=== PATIENT | male | born 1990 | race African-American/Black ===

== ENCOUNTER 2018-05-02 11:16 | Observation (INO) | payer OTHER ==
[2018-05-02] MEDS ORDERED: IPRATROPIUM/ALBUTEROL 0.5-2.5 MG/3 ML AMPUL NEB ONE ×3 (11:28→12:45)
[2018-05-02] MEDS ORDERED: METHYLPREDNISOLONE INJ 125 MG/2 ML SDV ONE (11:31)
--- NOTE | 2018-05-02 11:36 | ER Document Report ---
ED General - General Chief Complaint: Asthma Exacerbation Stated Complaint: SHORTNESS OF BREATH Time Seen by Provider: 05/02/18 11:28 Mode of Arrival: Ambulatory Information source: Patient Notes: Patient presents to the ED with asthma exacerbation. Hx of asthma. Has inhaler and nebulizer at home. Asthma is worsening today. Home medications have not helped. Patient has had rhinorrhea and productive cough. Does not smoke and is not on home oxygen. TRAVEL OUTSIDE OF THE [place] IN LAST 30 DAYS: No - HPI Onset: Just prior to arrival Onset/Duration: Sudden Quality of pain: No pain Associated symptoms: Productive cough, Rhinnorhea Exacerbated by: Denies Relieved by: Denies Similar symptoms previously: Yes Recently seen / treated by doctor: No - Related Data Allergies/Adverse Reactions: No Known Allergies Allergy (Unverified 05/02/18 11:16) Past Medical History - Social History Smoking Status: Never Smoker Family History: Reviewed & Not Pertinent Review of Systems - Review of Systems Constitutional: No symptoms reported EENT: Nose discharge Cardiovascular: No symptoms reported Respiratory: Cough, Short of breath Gastrointestinal: No symptoms reported Genitourinary: No symptoms reported Musculoskeletal: No symptoms reported Skin: No symptoms reported Hematologic/Lymphatic: No symptoms reported Neurological/Psychological: No symptoms reported Physical Exam - Vital signs Vitals: Temp Pulse Resp BP Pulse Ox 98.7 F 140 H 28 H 132/108 H 96 05/02/18 11:20 05/02/18 11:20 05/02/18 11:20 05/02/18 11:20 05/02/18 11:20 - Notes Notes: PHYSICAL EXAMINATION: GENERAL: Mild respiratory distress. HEAD: Atraumatic, normocephalic. EYES: Pupils equal round and reactive to light, extraocular movements intact, sclera anicteric, conjunctiva are normal. ENT: Nares patent, oropharynx clear without exudates. Moist mucous membranes. NECK: Normal range of motion, supple without lymphadenopathy LUNGS: Diffuse wheezing HEART: Tachycardic. ABDOMEN: Soft, nontender, nondistended abdomen. No guarding, no rebound. No masses appreciated. Musculoskeletal: Normal range of motion, no pitting or edema. No cyanosis. NEUROLOGICAL: Cranial nerves grossly intact. Normal speech, normal gait. Normal sensory, motor exams PSYCH: Normal mood, normal affect. SKIN: Warm, Dry, normal turgor, no rashes or lesions noted. Course - Re-evaluation Re-evalutation: 05/02/18 12:48 EKG: Ventricular rate 132, AL interval 144, QRS duration 78, QTc 457, sinus tachycardia. Multiple duonebs given as well as solumedrol. Labs and imaging ordered. Troponin and d-dimer are within normal limits. CXR does not show an acute process. On re-evaluation, patient now able to speak in broken sentences. Magnesium sulfate ordered. On re-evaluation, patient says he's doing better. Speaking in complete sentences. Still wheezing. I discussed admission with the patient. He's agreeable for admission. I spoke with Dr. Kinsey. He's agreeable with admitting the patient. - Vital Signs Vital signs: Temp Pulse Resp BP Pulse Ox 98.7 F 140 H 28 H 158/116 H 100 05/02/18 11:20 05/02/18 11:20 05/02/18 11:20 05/02/18 12:01 05/02/18 12:01 - Laboratory Result Diagrams: 05/02/18 11:30 05/02/18 11:30 Laboratory results interpreted by me: 05/02/18 05/02/18 11:30 11:30 WBC 16.7 H Lymphocytes % 12.0 L Absolute Neutrophils 12.8 H Absolute Monocytes 1.5 H Glucose 120 H Calcium 10.5 H AST 62 H ALT 18 L Total Protein 9.7 H Albumin 5.3 H Discharge - Discharge Clinical Impression: Asthma exacerbation Qualifiers: Asthma severity: moderate Asthma persistence: persistent Qualified Code(s): J45.41 - Moderate persistent asthma with (acute) exacerbation Condition: Good Disposition: ADMITTED OBSERVATION Admitting Provider: Hospitalist Unit Admitted: Medical Floor
[2018-05-02] MEDS: MAGNESIUM SULFATE/D5W 1 GM/100 ML RTUPB IV SCH ×2 (11:58→12:53)
--- NOTE | 2018-05-02 12:36 | RADIOLOGY REPORT (SQ) ---
EXAM DESCRIPTION: CHEST SINGLE VIEW COMPLETED DATE/TIME: 05/02/2018 12:23 pm REASON FOR STUDY: asthma COMPARISON: None. EXAM PARAMETERS: NUMBER OF VIEWS: One view. TECHNIQUE: Single frontal radiographic view of the chest acquired. RADIATION DOSE: NA LIMITATIONS: None. FINDINGS: LUNGS AND PLEURA: No opacities, masses or pneumothorax. No pleural effusion. MEDIASTINUM AND HILAR STRUCTURES: No masses. Contour normal. HEART AND VASCULAR STRUCTURES: Heart normal in size. Normal vasculature. BONES: No acute findings. HARDWARE: None in the chest. OTHER: No other significant finding. IMPRESSION: NO ACUTE RADIOGRAPHIC FINDING IN THE CHEST. TECHNICAL DOCUMENTATION: JOB ID: [id number] [employer]- All Rights Reserved Reading location - IP/workstation name: [email or web address]
[2018-05-02 12:37] LABS: ABSOLUTE EOSINOPHILS # (AUTO) 0.4 10^3/uL (0.0-0.6); ABSOLUTE MONOCYTES (AUTO) 1.5 10^3/uL (0.1-1.4); ABSOLUTE NEUT (AUTO) 12.8 10^3/uL (1.7-8.2); BASOPHILS % (AUTO) 0.1 % (0-2); EOSINOPHILS % (AUTO) 2.2 % (0-6); HEMATOCRIT 49.4 % (37.9-51.0); HEMOGLOBIN 16.9 g/dL (13.5-17.0); MEAN CORPUSCULAR HGB CONC 34.1 g/dL (32.0-36.0); MEAN CORPUSCULAR VOLUME 94 fl (80-97); PLATELET COUNT 308 10^3/uL (150-450); RED BLOOD COUNT 5.27 10^6/uL (4.35-5.55); RED CELL DISTRIBUTION WIDTH 13.7 % (11.5-14.0); SEGMENTED NEUTROPHILS % (AUTO) 76.7 % (42-78); TOTAL CELLS COUNTED % (AUTO) 100 %; WHITE BLOOD COUNT 16.7 10^3/uL (4.0-10.5)
[2018-05-02 12:50] LABS: ALANINE AMINOTRANSFERASE 18 U/L (21-72); ALBUMIN 5.3 g/dL (3.5-5.0); ALKALINE PHOSPHATASE 49 U/L (38-126); ANION GAP 15 (5-19); ASPARTATE AMINO TRANSFERASE 62 U/L (17-59); BILIRUBIN,DIRECT 0.3 mg/dL (0.0-0.4); BILIRUBIN,TOTAL 0.9 mg/dL (0.2-1.3); BLOOD UREA NITROGEN 12 mg/dL (7-20); CALCIUM 10.5 mg/dL (8.4-10.2); CARBON DIOXIDE 28 mmol/L (22-30); CHLORIDE 101 mmol/L (98-107); GLUCOSE 120 mg/dL (75-110); POTASSIUM 4.1 mmol/L (3.6-5.0); SODIUM 143.8 mmol/L (137-145); TOTAL PROTEIN 9.7 g/dL (6.3-8.2)
[2018-05-02] MEDS ORDERED: NORMAL SALINE 1000 ML 1,000 ML IV ONE (12:59)
[2018-05-02 15:04] LABS: ARTERIAL BLOOD BASE EXCESS -0.3 mmol/L; ARTERIAL BLOOD FIO2 3L; ARTERIAL BLOOD H2CO3 1.39 mmol/L (1.05-1.35); ARTERIAL BLOOD HCO3 25.6 mmol/L (20-24); ARTERIAL BLOOD O2 SATURATION 97.8 % (94-98); ARTERIAL BLOOD PCO2 46.3 mmHg (35-45); ARTERIAL BLOOD PH 7.36 (7.35-7.45); ARTERIAL BLOOD PO2 108.7 mmHg (80-100)
[2018-05-02] MEDS ORDERED: ALBUTEROL SULFATE 0.083% NEB 2.5 MG/3 ML AMPUL NEB PRN (15:10)
[2018-05-02] MEDS ORDERED: ONDANSETRON HCL INJ/PF 4 MG/2 ML SDV IV PRN (15:10)
[2018-05-02] MEDS ORDERED: RINGERS SOLUTION,LACTATED 1,000 ML IV PRN (15:10)
[2018-05-02] MEDS ORDERED: MAG HYDROX/AL HYDROX/SIMETH SUSP 30 ML UDCUP PO PRN (15:10)
[2018-05-02] MEDS ORDERED: ACETAMINOPHEN 325 MG TABLET PO PRN (15:10)
--- NOTE | 2018-05-02 15:46 | PDOC H&P ---
History of Present Illness Admission Date/PCP: 05/02/18 14:55 Patient complains of: Shortness of breath History of Present Illness: MARTY AMBRIZ is a 27 year old male with a lifelong history of asthma. Patient states that he was in his usual health until yesterday when he began to have some bronchospasm. He increase the frequency of his nebulizing treatments and he took some oral prednisone he has for exacerbations. He continued to have tightness and wheezing throughout the night. When he awoke he continued to use his nebulizing treatments he got tighter and tighter he had cough with productive yellow tinged sputum denies fevers chills. He presented to the emergency room. In the emergency room patient presented with significant sinus tachycardia tachypnea and extremely tight respirations. He had conversational dyspnea use of accessory muscles. He was given IV Solu-Medrol and [id number] breathing treatments. He improved slightly. An ABG was performed which showed adequate oxygenation and is not retaining CO2. His white count was mildly elevated his chest x-ray was clear a request for admission was made Past Medical History Cardiac Medical History: Denies: None, Atrial Fibrillation, Congestive Heart Failure, Coronary Artery Disease, DVT, Myocardial Infarction, Hyperlipidema, Hypertension, Peripheral Vascular Disease, Pulmonary Embolism, Heart Murmur, Other Pulmonary Medical History: Reports: Asthma EENT Medical History: Denies: None, Cataracts, Eyes, Ears, Nose, Throat, Other Neurological Medical History: Denies: None, Hemorrhagic CVA, Ischemic CVA, Migraine, Multiple Sclerosis, Seizures, Other Endocrine Medical History: Denies: None, Diabetes Mellitus Type 1, Diabetes Mellitus Type 2, Gestational Diabetes, Hyperthyroidism, Hypothyroidism, Obesity, Other Renal/ Medical History: Denies: None, Chronic Kidney Disease, End Stage Renal Disease, Nephrolithiasis, Other Malignancy Medical History: Denies: None, Bone Cancer, Brain Cancer, Breast Cancer, Cervical Cancer, Colorectal Cancer, Leukemia, Liver Cancer, Lung Cancer, Lymphoma, Ovarian Cancer , Pancreatic Cancer, Renal (Kidney) Cancer, Skin Cancer, Other GI Medical History: Denies: None, Cirrhosis, Crohn's Disease, Diverticulitis, Gastroesophageal Reflux Disease, Hepatitis, Hiatal Hernia, Peptic Ulcer Disease, Ulcerative Colitis, Other Musculoskeltal Medical History: Denies: None, Arthritis, Fibromyalgia, Gout, Other Skin Medical History: Denies: None, Eczema, Psoriasis, Other Traumatic Medical History: Denies: None, Gunshot Wound, Pneumothorax, Stab Wound, Traumatic Brain Injury , Other Hematology: Denies: None, Anemia, Hemophilia, Sickle Cell Disease, Bleeding Tendencies, Heparin Induced Thrombocytopenia, Neutropenia, Other Social History Smoking Status: Never Smoker Family History Family History: DM, Hypertension, Other - Internal grandmother and father from cerebral aneurysms Parental Family History Reviewed: Yes Children Family History Reviewed: Yes Sibling(s) Family History Reviewed.: Yes Medication/Allergy Home Medications: Albuterol Sulfate [Albuterol Sulfate 2.5mg/3 mL] 1 vial NEB Q6HP PRN 05/02/18 Albuterol Sulfate [Proair HFA Inhalation Aerosol 8.5 gm MDI] 2 puff IH Q4HP PRN 05/02/18 Fluticasone/Salmeterol [Advair 250-50 Diskus 14 Dose/Diskus] 1 puff IH Q12 05/02 Prednisone [Prednisone] 20 mg PO BID 05/02/18 Allergies/Adverse Reactions: No Known Allergies Allergy (Unverified 05/02/18 11:16) Review of Systems Constitutional: PRESENT: as per HPI. ABSENT: chills, fever(s) Eyes: ABSENT: visual disturbances Ears: ABSENT: hearing changes Nose, Mouth, and Throat: ABSENT: as per HPI, headache(s), mouth pain, sore throat, vertigo, other Breasts: ABSENT: as per HPI, other Cardiovascular: ABSENT: as per HPI, chest pain, dyspnea on exertion, edema, orthropnea, palpitations, other Respiratory: PRESENT: as per HPI, dyspnea Gastrointestinal: ABSENT: as per HPI, abdominal pain, bloating, coffee ground emesis, constipation, diarrhea, dysphagia, heartburn, hematemesis, hematochezia , melena, nausea, vomiting, other Genitourinary: ABSENT: as per HPI, difficulty urinating, dysuria, hematuria, nocturia, other Musculoskeletal: ABSENT: joint swelling Integumentary: ABSENT: rash, wounds Neurological: ABSENT: abnormal gait, abnormal speech, confusion, dizziness, focal weakness, syncope Psychiatric: ABSENT: anxiety, depression, homidical ideation, suicidal ideation Endocrine: ABSENT: cold intolerance, heat intolerance, polydipsia, polyuria Hematologic/Lymphatic: ABSENT: easy bleeding, easy bruising Allergic/Immunologic: ABSENT: as per HPI, seasonal rhinorrhea, other Physical Exam Vital Signs: Temp Pulse Resp BP Pulse Ox 98.7 F 140 H 28 H 158/116 H 100 05/02/18 11:20 05/02/18 11:20 05/02/18 11:20 05/02/18 12:01 05/02/18 12:01 General appearance: PRESENT: mild distress Head exam: PRESENT: atraumatic, normocephalic Eye exam: PRESENT: conjunctiva pink, EOMI, PERRLA. ABSENT: scleral icterus Ear exam: PRESENT: normal external ear exam Mouth exam: PRESENT: moist, tongue midline Teeth exam: ABSENT: dental caries, dental tenderness, edentulous, poor dentation , other Throat exam: ABSENT: post pharyngeal erythema, tonsillar erythema, tonsillar exudate, tonsillogmegaly, other Respiratory exam: PRESENT: accessory muscle use, wheezes, other - Conversational dyspnea. ABSENT: clear to auscultation merrick, rales, rhonchi Cardiovascular exam: PRESENT: RRR. ABSENT: diastolic murmur, rubs, systolic murmur Pulses: PRESENT: normal dorsalis pedis pul Vascular exam: PRESENT: normal capillary refill Extremities exam: PRESENT: full ROM. ABSENT: calf tenderness, clubbing, pedal edema Musculoskeletal exam: PRESENT: normal inspection. ABSENT: tenderness Neurological exam: PRESENT: alert, awake, oriented to person, oriented to place , oriented to time, oriented to situation, CN II-XII grossly intact. ABSENT: motor sensory deficit Skin exam: PRESENT: dry, intact, warm. ABSENT: cyanosis, rash Results Impressions: Chest X-Ray 05/02/18 11:32 IMPRESSION: NO ACUTE RADIOGRAPHIC FINDING IN THE CHEST. Assessment & Plan - Diagnosis (1) Status asthmaticus Qualifiers: Asthma severity: severe Asthma persistence: persistent Qualified Code(s) : J45.52 - Severe persistent asthma with status asthmaticus Is this a current diagnosis for this admission?: Yes Plan: Mid to telemetry. IV Solu-Medrol 40 mg every 6 hours every 4 hours duo nebs and every 2 hour as needed albuterol treatments. (2) Acute bronchitis Qualifiers: Bronchitis organism: unspecified organism Qualified Code(s): J20.9 - Acute bronchitis, unspecified Is this a current diagnosis for this admission?: Yes Plan: Empiric treatment with azithromycin 500 mg IV (3) Family history of cerebral aneurysm Is this a current diagnosis for this admission?: Yes Plan: Maternal grandmother with history of cerebral aneurysm father from cerebral aneurysm. Patient was counseled that he should have screening with an MRA to rule out familial cerebral aneurysm. This can be scheduled by his primary care as an outpatient procedure - Time Time Spent: 50 to 70 Minutes Anticipated discharge: Home Within: within 48 hours - Inpatient Certification Medical Necessity: Need Close Monitoring Due to Risk of Patient Decompensation
[2018-05-02] MEDS ORDERED: AZITHROMYCIN INJ 500 MG VIAL IV SCH (16:00)
[2018-05-02] MEDS: IPRATROPIUM/ALBUTEROL 0.5-2.5 MG/3 ML AMPUL NEB SCH ×2 (16:50→19:42)
[2018-05-02] MEDS: ENOXAPARIN SODIUM INJ 40 MG/0.4 ML DISP.SYRIN SUBCUT SCH (17:01)
[2018-05-02] MEDS: AZITHROMYCIN 500 MG in DEXTROSE 5%-WATER 250 ML IV SCH (17:01)
[2018-05-02] MEDS: METHYLPREDNISOLONE INJ 40 MG/1 ML SDV IV SCH (18:06)
--- NOTE | 2018-05-02 18:16 | EKG REPORT ---
SEVERITY:- BORDERLINE ECG - SINUS TACHYCARDIA MARKEDLY POSTERIOR QRS AXIS : Confirmed by: Carla Corral MD 02-May-2018 18:16:20
[2018-05-03] MEDS: METHYLPREDNISOLONE INJ 40 MG/1 ML SDV IV SCH ×4 (00:23→17:27)
[2018-05-03 04:34] LABS: ABSOLUTE LYMPHOCYTES (AUTO) 1.1 10^3/uL (0.5-4.7); ABSOLUTE MONOCYTES (AUTO) 0.6 10^3/uL (0.1-1.4); ABSOLUTE NEUT (AUTO) 16.3 10^3/uL (1.7-8.2); BASOPHILS % (AUTO) 0.2 % (0-2); EOSINOPHILS % (AUTO) 0.1 % (0-6); HEMATOCRIT 45.5 % (37.9-51.0); HEMOGLOBIN 15.6 g/dL (13.5-17.0); LYMPHOCYTES % (AUTO) 6.3 % (13-45); MEAN CORPUSCULAR HEMOGLOBIN 32.4 pg (27.0-33.4); MEAN CORPUSCULAR HGB CONC 34.3 g/dL (32.0-36.0); MEAN CORPUSCULAR VOLUME 95 fl (80-97); MONOCYTES % (AUTO) 3.3 % (3-13); PLATELET COUNT 261 10^3/uL (150-450); RED BLOOD COUNT 4.81 10^6/uL (4.35-5.55); RED CELL DISTRIBUTION WIDTH 13.8 % (11.5-14.0); SEGMENTED NEUTROPHILS % (AUTO) 90.1 % (42-78); TOTAL CELLS COUNTED % (AUTO) 100 %; WHITE BLOOD COUNT 18.1 10^3/uL (4.0-10.5)
[2018-05-03 04:49] LABS: ANION GAP 11 (5-19); BLOOD UREA NITROGEN 11 mg/dL (7-20); CALCIUM 10.2 mg/dL (8.4-10.2); CARBON DIOXIDE 26 mmol/L (22-30); CHLORIDE 104 mmol/L (98-107); GLUCOSE 124 mg/dL (75-110); POTASSIUM 4.6 mmol/L (3.6-5.0); SODIUM 141.4 mmol/L (137-145)
[2018-05-03] MEDS: IPRATROPIUM/ALBUTEROL 0.5-2.5 MG/3 ML AMPUL NEB SCH ×4 (08:05→20:20)
[2018-05-03] MEDS: ENOXAPARIN SODIUM INJ 40 MG/0.4 ML DISP.SYRIN SUBCUT SCH (09:27)
--- NOTE | 2018-05-03 12:04 | PDOC PROGRESS REPORT ---
Subjective Progress Note for:: 05/03/18 Subjective:: MARTY AMBRIZ is a 27 year old male with a lifelong history of asthma. Patient states that he was in his usual health until yesterday when he began to have some bronchospasm. He increase the frequency of his nebulizing treatments and he took some oral prednisone he has for exacerbations. He continued to have tightness and wheezing throughout the night. When he awoke he continued to use his nebulizing treatments he got tighter and tighter he had cough with productive yellow tinged sputum denies fevers chills. Patient significantly improved this morning. No conversational dyspnea on room air still has audible wheezing and chest can just Reason For Visit: STATUS ASTHMATICUS Physical Exam Vital Signs: Temp Pulse Resp BP Pulse Ox 97.6 F 91 17 139/62 H 92 05/03/18 07:28 05/03/18 08:58 05/03/18 08:05 05/03/18 07:28 05/03/18 08:05 Intake & Output 05/02/18 05/03/18 05/04/18 06:59 06:59 06:59 Intake Total 902 Balance 902 Weight 84.3 kg General appearance: PRESENT: no acute distress, well-developed, well-nourished Eye exam: PRESENT: conjunctiva pink, EOMI, PERRLA. ABSENT: scleral icterus Neck exam: ABSENT: carotid bruit, JVD, lymphadenopathy, thyromegaly Respiratory exam: PRESENT: clear to auscultation merrick, rhonchi, wheezes. ABSENT : rales Cardiovascular exam: PRESENT: RRR. ABSENT: diastolic murmur, rubs, systolic murmur Pulses: PRESENT: normal dorsalis pedis pul GI/Abdominal exam: PRESENT: normal bowel sounds, soft. ABSENT: distended, guarding, mass, organolmegaly, rebound, tenderness Extremities exam: PRESENT: full ROM. ABSENT: calf tenderness, clubbing, pedal edema Results Laboratory Results: 05/03/18 04:14 05/03/18 04:14 05/03/18 05/03/18 04:14 04:14 WBC 18.1 H RBC 4.81 Hgb 15.6 Hct 45.5 MCV 95 MCH 32.4 MCHC 34.3 RDW 13.8 Plt Count 261 Seg Neutrophils % 90.1 H Lymphocytes % 6.3 L Monocytes % 3.3 Eosinophils % 0.1 Basophils % 0.2 Absolute Neutrophils 16.3 H Absolute Lymphocytes 1.1 Absolute Monocytes 0.6 Absolute Eosinophils 0.0 Absolute Basophils 0.0 Sodium 141.4 Potassium 4.6 Chloride 104 Carbon Dioxide 26 Anion Gap 11 BUN 11 Creatinine 0.71 Est GFR ( Amer) > 60 Est GFR (Non-Af Amer) > 60 Glucose 124 H Calcium 10.2 Magnesium 2.4 H Impressions: Chest X-Ray 05/02/18 11:32 IMPRESSION: NO ACUTE RADIOGRAPHIC FINDING IN THE CHEST. Assessment & Plan - Diagnosis (1) Status asthmaticus Qualifiers: Asthma severity: severe Asthma persistence: persistent Qualified Code(s) : J45.52 - Severe persistent asthma with status asthmaticus Is this a current diagnosis for this admission?: Yes Plan: Continue IV steroids and nebulizing treatments. Patient significantly improved anticipate discharge within 24 hours (2) Acute bronchitis Qualifiers: Bronchitis organism: unspecified organism Qualified Code(s): J20.9 - Acute bronchitis, unspecified Is this a current diagnosis for this admission?: Yes Plan: IV azithromycin daily will convert to p.o. tomorrow complete a course of therapy acute bronchitis (3) Family history of cerebral aneurysm Is this a current diagnosis for this admission?: Yes Plan: Maternal grandmother with history of cerebral aneurysm father from cerebral aneurysm. Patient was counseled that he should have screening with an MRA to rule out familial cerebral aneurysm. This can be scheduled by his primary care as an outpatient procedure - Time Time Spent with patient: 25-34 minutes
[2018-05-03] MEDS ORDERED: PNEUMOCOCCAL 23-VAL P-SAC VAC 0.5 ML VIAL IM PRN (12:20)
[2018-05-03] MEDS ORDERED: ONDANSETRON HCL INJ/PF 4 MG/2 ML SDV IV PRN (13:30)
[2018-05-03] MEDS: AZITHROMYCIN 500 MG in DEXTROSE 5%-WATER 250 ML IV SCH (17:29)
[2018-05-04] MEDS: METHYLPREDNISOLONE INJ 40 MG/1 ML SDV IV SCH ×2 (03:33→05:49)
[2018-05-04] MEDS: IPRATROPIUM/ALBUTEROL 0.5-2.5 MG/3 ML AMPUL NEB SCH (08:16)
[2018-05-04 08:57] VITALS: BP 120/68
--- NOTE | 2018-05-04 10:19 | PDOC DISCHARGE SUMMARY ---
General - Admit/Disc Date/PCP Admission Date/Primary Care Provider: 05/02/18 14:55 Discharge Date: 05/04/18 - Discharge Diagnosis (1) Status asthmaticus Is this a current diagnosis for this admission?: Yes (2) Acute bronchitis Is this a current diagnosis for this admission?: Yes (3) Family history of cerebral aneurysm Is this a current diagnosis for this admission?: Yes - Additional Information Resuscitation Status: Full Code Discharge Diet: Regular Discharge Activity: Activity As Tolerated Prescriptions: Azithromycin 250 mg PO DAILY #4 tablet Prednisone 20 mg PO BID #8 tablet Home Medications: Albuterol Sulfate [Albuterol Sulfate 2.5mg/3 mL] 1 vial NEB Q6HP PRN 05/02/18 Albuterol Sulfate [Proair HFA Inhalation Aerosol 8.5 gm MDI] 2 puff IH Q4HP PRN 05/02/18 Fluticasone/Salmeterol [Advair 250-50 Diskus 14 Dose/Diskus] 1 puff IH Q12 05/02 Prednisone 20 mg PO BID 05/02/18 Acetaminophen [Tylenol 325 mg Tablet] 650 mg PO Q4HP PRN tablet 05/04/18 Azithromycin 250 mg PO DAILY #4 tablet 05/04/18 Prednisone 20 mg PO BID #8 tablet 05/04/18 History of Present Illness History of Present Illness: MARTY AMBRIZ is a 27 year old male with a lifelong history of asthma. Patient states that he was in his usual health until yesterday when he began to have some bronchospasm. He increase the frequency of his nebulizing treatments and he took some oral prednisone he has for exacerbations. He continued to have tightness and wheezing throughout the night. When he awoke he continued to use his nebulizing treatments he got tighter and tighter he had cough with productive yellow tinged sputum denies fevers chills. He presented to the emergency room Hospital Course Hospital Course: Patient was admitted to telemetry bed started on IV Solu-Medrol and around-the- clock nebulizing treatments. He was given empiric azithromycin 500 mg IV for a acute bronchitis. Chest x-ray was clear. He defervesced over 48-hour. His saturations were in the 90s on room air. He had minimal end expiratory wheezing at the time of discharge. He is to follow-up with his primary care provider in 7-10 days. He was provided a per scription for azithromycin and a short 4-day course of steroids. 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 Physical Exam Vital Signs: Temp Pulse Resp BP Pulse Ox 98.1 F 91 20 120/68 100 05/04/18 07:00 05/04/18 07:00 05/04/18 07:00 05/04/18 07:00 05/04/18 07:00 Intake & Output 05/03/18 05/04/18 05/05/18 06:59 06:59 06:59 Intake Total 1152 1829 Balance 1152 1829 Weight 84.3 kg 84.3 kg General appearance: PRESENT: no acute distress, well-developed, well-nourished Neck exam: ABSENT: carotid bruit, JVD, lymphadenopathy, thyromegaly Respiratory exam: PRESENT: wheezes - Rare end expiratory wheeze. ABSENT: rales , rhonchi GI/Abdominal exam: PRESENT: normal bowel sounds, soft. ABSENT: distended, guarding, mass, organolmegaly, rebound, tenderness Extremities exam: PRESENT: full ROM. ABSENT: calf tenderness, clubbing, pedal edema Results Laboratory Results: 05/03/18 04:14 05/03/18 04:14 Impressions: Chest X-Ray 05/02/18 11:32 IMPRESSION: NO ACUTE RADIOGRAPHIC FINDING IN THE CHEST. Qualifiers - * PATIENT BEING DISCHARGED WITH ANY OF THE FOLLOWING DIAGNOSIS: No Plan Time Spent: Less than 30 Minutes
[2018-05-04] MEDS: ENOXAPARIN SODIUM INJ 40 MG/0.4 ML DISP.SYRIN SUBCUT SCH (10:20)
== END 2018-05-04 10:48 | disposition home or self-care (01) ==
LOC: ER 11:16 → EH 14:55 → 5 16:30
PROVIDERS: ADMIT Internal Medicine; ATTEND Internal Medicine
DX: J45.52 Severe persistent asthma with status asthmaticus (principal); J20.9 Acute bronchitis, unspecified; Z84.89 Family history of other specified conditions; Z79.51 Long term (current) use of inhaled steroids; Z79.52 Long term (current) use of systemic steroids; Z79.899 Other long term (current) drug therapy; Z82.49 Family history of ischemic heart disease and other diseases of the circulatory system
CPT/HCPCS: 93005; 94640 ×5; 99285; 96361; 96375; 96365; 36415 ×2; 82803; 83735; 85025 ×2; 80048; 80053; 84484; 85379; 71045; 93010; G0378 ×4; J2920 ×3; J2930; J3475; J7060 ×2; J7030; J7120; J0456 ×2; J7620 ×3

== ENCOUNTER 2019-05-09 19:56 | Emergency (ER) | payer OTHER ==
[2019-05-09] MEDS ORDERED: IPRATROPIUM/ALBUTEROL 0.5-2.5 MG/3 ML AMPUL NEB ONE (20:05)
[2019-05-09] MEDS ORDERED: ALBUTEROL SULFATE 0.083% NEB 2.5 MG/3 ML AMPUL NEB ONE ×3 (20:05→21:27)
--- NOTE | 2019-05-09 20:08 | ER Document Report ---
ED Medical Screen (RME) - General Chief Complaint: Shortness Of Breath Stated Complaint: ASTHMA ATTACK,DIFFICULTY BREATHING Time Seen by Provider: 05/09/19 20:04 Mode of Arrival: Ambulatory Information source: Patient Notes: 28-year-old male presented to ED for severe shortness of breath. At the urgent care he was given a shot of Depo-Medrol and a nebulizer. His sats were 79% urgent care and 93 in the emergency department. He is wheezing inspiratory expiratory. He states that the shortness of breath started about 2:30 PM. He states that even with his inhaler the steroids and a nebulizer he is not feeling any better. We will put him on a nebulizer at this time and did get another bed for him in the back. I have greeted and performed a rapid initial assessment of this patient. A comprehensive ED assessment and evaluation of the patient, analysis of test results and completion of medical decision making process will be conducted by an additional ED providers. TRAVEL OUTSIDE OF THE [place] IN LAST 30 DAYS: No - Related Data Allergies/Adverse Reactions: No Known Allergies Allergy (Unverified 05/02/18 11:16) Home Medications: albuterol inhaler and albuterol nebulizer Past Medical History - Social History Chew tobacco use (# tins/day): No Frequency of alcohol use: Social Drug Abuse: None - Past Medical History Cardiac Medical History: Denies: Hx Atrial Fibrillation, Hx Congestive Heart Failure, Hx Coronary Artery Disease, Hx DVT, Hx Heart Attack, Hx Hypercholesterolemia, Hx Hypertension, Hx Peripheral Vascular Disease, Hx Pulmonary Embolism, Hx Heart Murmur Pulmonary Medical History: Reports: Hx Asthma Neurological Medical History: Denies: Hx Migraine, Hx Seizures Endocrine Medical History: Denies: Hx Diabetes Mellitus Type 1, Hx Diabetes Mellitus Type 2, Hx Hyperthyroidism, Hx Hypothyroidism Renal/ Medical History: Denies: Hx End Stage Renal Disease, Hx Peritoneal Dialysis Malignancy Medical History: Denies Hx Bone Cancer, Denies Hx Brain Cancer, Denies Hx Colorectal Cancer, Denies Hx Leukemia, Denies Hx Liver Cancer, Denies Hx Lung Cancer, Denies Hx Lymphoma, Denies Hx Pancreatic Cancer, Denies Hx Renal (Kidney) Cancer, Denies Hx Skin Cancer GI Medical History: Denies: Hx Cirrhosis, Hx Crohn's Disease, Hx Diverticulitis, Hx Gastroesophageal Reflux Disease, Hx Hepatitis, Hx Hiatal Hernia, Hx Ulcerative Colitis Musculoskeltal Medical History: Denies Hx Arthritis, Denies Hx Fibromyalgia, Denies Hx Gout Skin Medical History: Denies Hx Eczema, Denies Hx Psoriasis Traumatic Medical History: Denies: Hx Gunshot Wound, Hx Pneumothorax, Hx Traumatic Brain Injury Infectious Medical History: Denies: Hx Hepatitis Physical Exam - Vital signs Vitals: Temp Pulse Resp BP Pulse Ox 97.8 F 112 H 26 H 160/115 H 93 05/09/19 20:02 05/09/19 20:02 05/09/19 20:02 05/09/19 20:02 05/09/19 20:02 Course - Vital Signs Vital signs: Temp Pulse Resp BP Pulse Ox 97.8 F 112 H 26 H 160/115 H 93 05/09/19 20:02 05/09/19 20:02 05/09/19 20:02 05/09/19 20:02 05/09/19 20:02
[2019-05-09] MEDS ORDERED: METHYLPREDNISOLONE INJ 125 MG/2 ML SDV ONE (20:28)
[2019-05-09] MEDS ORDERED: MAGNESIUM SULFATE/D5W 2 GM/200 ML RTUPB IV ONE (20:28)
--- NOTE | 2019-05-09 20:28 | ER Document Report ---
ED Respiratory Problem - General Chief Complaint: Shortness Of Breath Stated Complaint: ASTHMA ATTACK,DIFFICULTY BREATHING Time Seen by Provider: 05/09/19 20:04 Primary Care Provider: DEMI ROB DO [Primary Care Provider] - Follow up as needed Mode of Arrival: Ambulatory Information source: Parent TRAVEL OUTSIDE OF THE [place] IN LAST 30 DAYS: No - HPI Patient complains to provider of: Asthma Onset: Just prior to arrival Duration: Worse/persistent Notes: 28-year-old male with a history of asthma, asthma exacerbations and status asthmaticus presents to the emergency department complaining of acute shortness of breath. - Related Data Allergies/Adverse Reactions: No Known Allergies Allergy (Unverified 05/02/18 11:16) Home Medications: albuterol inhaler and albuterol nebulizer Past Medical History - General Information source: Patient - Social History Smoking Status: Never Smoker Chew tobacco use (# tins/day): No Frequency of alcohol use: Social Drug Abuse: None Family History: DM, Hypertension, Other - Internal grandmother and father from cerebral aneurysms Patient has suicidal ideation: No Patient has homicidal ideation: No - Past Medical History Cardiac Medical History: Denies: Hx Atrial Fibrillation, Hx Congestive Heart Failure, Hx Coronary Artery Disease, Hx DVT, Hx Heart Attack, Hx Hypercholesterolemia, Hx Hypertension, Hx Peripheral Vascular Disease, Hx Pulmonary Embolism, Hx Heart Murmur Pulmonary Medical History: Reports: Hx Asthma Neurological Medical History: Denies: Hx Migraine, Hx Seizures Endocrine Medical History: Denies: Hx Diabetes Mellitus Type 1, Hx Diabetes M ellitus Type 2, Hx Hyperthyroidism, Hx Hypothyroidism Renal/ Medical History: Denies: Hx End Stage Renal Disease, Hx Peritoneal Dialysis Malignancy Medical History: Denies Hx Bone Cancer, Denies Hx Brain Cancer, Denies Hx Colorectal Cancer, Denies Hx Leukemia, Denies Hx Liver Cancer, Denies Hx Lung Cancer, Denies Hx Lymphoma, Denies Hx Pancreatic Cancer, Denies Hx Renal (Kidney) Cancer, Denies Hx Skin Cancer GI Medical History: Denies: Hx Cirrhosis, Hx Crohn's Disease, Hx Diverticulitis, Hx Gastroesophageal Reflux Disease, Hx Hepatitis, Hx Hiatal Hernia, Hx Ulcerative Colitis Musculoskeletal Medical History: Denies Hx Arthritis, Denies Hx Fibromyalgia, Denies Hx Gout Skin Medical History: Denies Hx Eczema, Denies Hx Psoriasis Traumatic Medical History: Denies: Hx Gunshot Wound, Hx Pneumothorax, Hx Traumatic Brain Injury Infectious Medical History: Denies: Hx Hepatitis Review of Systems - Review of Systems Constitutional: See HPI EENT: No symptoms reported Cardiovascular: denies: Chest pain Respiratory: See HPI Gastrointestinal: No symptoms reported Genitourinary: No symptoms reported Male Genitourinary: No symptoms reported Musculoskeletal: No symptoms reported Skin: No symptoms reported Hematologic/Lymphatic: No symptoms reported Neurological/Psychological: No symptoms reported -: Yes All other systems reviewed and negative Physical Exam - Vital signs Vitals: Temp Pulse Resp BP Pulse Ox 97.8 F 112 H 26 H 160/115 H 93 05/09/19 20:02 05/09/19 20:02 05/09/19 20:02 05/09/19 20:02 05/09/19 20:02 - Notes Notes: PHYSICAL EXAMINATION: GENERAL: Ill-appearing, tachypneic and in moderate respiratory distress. HEAD: Atraumatic, normocephalic. EYES: Pupils equal round and reactive to light, extraocular movements intact, sclera anicteric, conjunctiva are normal. ENT: nares patent, oropharynx clear without exudates. Moist mucous membranes. NECK: Normal range of motion, supple without lymphadenopathy LUNGS: Lung exam is significant for tachypnea, accessory muscle use, moderate air movement in all lung weaver and coarse rhonchi and wheezes throughout all lung weaver HEART: Tachycardia, no murmurs rubs clicks or gallops appreciated ABDOMEN: Soft, nontender, hypo-active bowel sounds. No guarding, no rebound. N o masses appreciated. EXTREMITIES: Normal range of motion, no pitting or edema. No cyanosis. NEUROLOGICAL: No focal neurological deficits. Moves all extremities spontaneously and on command. PSYCH: Anxious mood, normal affect. SKIN: Warm, Dry, normal turgor, no rashes or lesions noted. Course - Re-evaluation Re-evalutation: 05/10/19 01:01 Currently patient is sitting up in bed sleeping, decreased work of breathing, lung sounds improved. Decreased wheezing and rhonchi appreciated. 05/10/19 01:08 Differential diagnosis: Asthma exacerbation, acute bronchitis, pneumonia, status asthmaticus Patient presents with a moderate exacerbation of their baseline asthma. Moderate wheezing at time of presentation but vitals no longer show significant hypoxemia or tachypnea. retractions resolved. Patient did clinically improve after receiving nebulizers here in the emergency department. Chest x-ray without evidence of an acute pneumonia. Patient able to ambulate without any respiratory distress. Based on patient's overall reassuring assessment, I believe they are stable for outpatient management with steroids. I do not suspect an acute alternative pathology at this time based on history and exam including acute pulmonary embolus, ACS, pneumothorax, or aortic dissection. At this time will discharge with return precautions and follow-up recommendations. Verbal discharge instructions given a the bedside and opportunity for questions given. Medication warnings reviewed. Patient is in agreement with this plan and has verbalized understanding of return precautions and the need for primary care follow-up in the next 24 hours. Impression: Acute asthma exacerbation 05/10/19 01:10 Plan: Discharge with prescriptions for albuterol MDI, prescription for prednisone 60 mg p.o. daily x4 days. Patient instructed to call 911 if symptoms return despite using medications as prescribed. - Vital Signs Vital signs: Temp Pulse Resp BP Pulse Ox 97.8 F 115 H 22 H 162/102 H 98 05/09/19 20:02 05/09/19 21:04 05/09/19 21:04 05/09/19 21:01 05/09/19 21:01 - Laboratory Result Diagrams: 05/09/19 20:28 05/09/19 20:28 Laboratory results interpreted by me: 05/09/19 05/09/19 20:28 20:28 WBC 10.9 H Eos % (Auto) 7.6 H Absolute Eos (auto) 0.8 H Total Protein 8.4 H All laboratory results reviewed by this MD. - Diagnostic Test Radiology reviewed: Reports reviewed Critical Care Note - Critical Care Note Total time excluding time spent on procedures (mins): 35 - pt treated with iv solumedrol and continous albuterol nebs Discharge - Discharge Clinical Impression: Asthma exacerbation Condition: Good Disposition: HOME, SELF-CARE Instructions: Asthma ([facility]) Additional Instructions: Return to the Emergency Department without delay if any worse. You were seen for an asthma exacerbation. Your symptoms improved with treatment here in the emergency department. However, it is very important that you return to the emergency department immediately if you began to have worsening difficulty breathing that does not respond to your normal home nebulizers. You are also being sent home on a five-day course of steroids that you should start taking tomorrow. Please also follow closely with your primary care physician. you should also return to emergency department if you develop fever greater than 101, persistent cough, persistent vomiting, pass out, or any other symptoms that are concerning to you. Prescriptions: Albuterol Sulfate [Albuterol Sulfate Hfa] 8.5 gm IH 6XD PRN #1 [id number] PRN Reason: wheezing Prednisone [Deltasone 20 mg Tablet] 60 mg PO DAILY 4 Days #12 tablet Referrals: DEMI ROB DO [Primary Care Provider] - Follow up tomorrow
[2019-05-09] MEDS: MAGNESIUM SULFATE/D5W 1 GM/100 ML RTUPB IV SCH ×2 (20:30→20:41)
[2019-05-09] MEDS ORDERED: METHYLPREDNISOLONE INJ 125 MG/2 ML SDV IV ONE (20:33)
[2019-05-09] MEDS: ALBUTEROL SULFATE 0.083% NEB 2.5 MG/3 ML AMPUL NEB PRN ×5 (20:40→21:29)
[2019-05-09 20:51] LABS: ABSOLUTE BASOPHILS # (AUTO) 0.1 10^3/uL (0.0-0.2); ABSOLUTE EOSINOPHILS # (AUTO) 0.8 10^3/uL (0.0-0.6); ABSOLUTE MONOCYTES (AUTO) 0.9 10^3/uL (0.1-1.4); ABSOLUTE NEUT (AUTO) 6.2 10^3/uL (1.7-8.2); BASOPHILS % (AUTO) 0.6 % (0-2); EOSINOPHILS % (AUTO) 7.6 % (0-6); HEMATOCRIT 45.1 % (37.9-51.0); HEMOGLOBIN 15.3 g/dL (13.5-17.0); LYMPHOCYTES % (AUTO) 27.1 % (13-45); MEAN CORPUSCULAR HEMOGLOBIN 31.6 pg (27.0-33.4); MEAN CORPUSCULAR VOLUME 93 fl (80-97); MONOCYTES % (AUTO) 7.9 % (3-13); PLATELET COUNT 228 10^3/uL (150-450); RED BLOOD COUNT 4.85 10^6/uL (4.35-5.55); RED CELL DISTRIBUTION WIDTH 13.2 % (11.5-14.0); SEGMENTED NEUTROPHILS % (AUTO) 56.8 % (42-78); TOTAL CELLS COUNTED % (AUTO) 100 %; WHITE BLOOD COUNT 10.9 10^3/uL (4.0-10.5)
[2019-05-09 20:59] LABS: ALKALINE PHOSPHATASE 45 U/L (38-126); ANION GAP 10 (5-19); ASPARTATE AMINO TRANSFERASE 24 U/L (17-59); BILIRUBIN,DIRECT 0.1 mg/dL (0.0-0.4); BILIRUBIN,TOTAL 0.8 mg/dL (0.2-1.3); BLOOD UREA NITROGEN 12 mg/dL (7-20); CALCIUM 10.1 mg/dL (8.4-10.2); CARBON DIOXIDE 29 mmol/L (22-30); CHLORIDE 103 mmol/L (98-107); GLUCOSE 88 mg/dL (75-110); POTASSIUM 3.7 mmol/L (3.6-5.0); TOTAL PROTEIN 8.4 g/dL (6.3-8.2)
--- NOTE | 2019-05-09 21:34 | RADIOLOGY REPORT (SQ) ---
EXAM DESCRIPTION: XR CHEST 1 VIEW COMPLETED DATE/TME: 05/09/2019 20:34 CLINICAL HISTORY: 28 years Male asthma attack, acute dyspnea COMPARISON: 05/02/2018. FINDINGS: The cardiomediastinal silhouette appears unremarkable. No consolidating infiltrates or pleural effusions. No pneumothorax. IMPRESSION: No acute abnormality is identified.
[2019-05-10] MEDS ORDERED: ALBUTEROL SULFATE HFA (90 MCG/PUFF) 8 GM MDI (1 MDI/ER DISP) IH ONE ×2 (01:59→02:00)
[2019-05-10 02:01] VITALS: BP 167/88
== END 2019-05-10 02:01 | disposition home or self-care (01) ==
LOC: ER 19:56
DX: J45.901 Unspecified asthma with (acute) exacerbation (principal); R06.02 Shortness of breath
CPT/HCPCS: 36415; 85025; 80053; 71045; J2930; J3475; J7620; J3490